=== PATIENT | male | born 1975 | race Caucasian/White ===

== ENCOUNTER 2016-12-09 19:47 | Emergency (ER) | payer SELFPAY ==
[2016-12-09 19:56] VITALS: BP 185/104; PULSE 77; RESP 16; O2SAT 99
--- NOTE | 2016-12-09 20:40 | ED.REPORT ---
HPI- Male Date of Service Dec 09, 2016 ED Provider: Candice Nguyen MD The patient is a 41 year old male with history of HTN who presents to the ED complaining of right testicle pain and swelling. He reports that his pain radiates through his right pelvis and RLQ. He states that he made a sudden movement earlier and felt like he pinched his testicle. Throughout the day, he noticed tenderness and a gradual swelling of his right testicle. He denies dysuria, hematuria, fever, chills, back pain, or any other symptoms at this time. He is sexually active. Nursing Notes Stated Complaint: SWOLLEN TESTICAL Chief Complaint: Male Abdominal Pain Nursing Notes Reviewed: Yes Allergies: Coded Allergies: No Known Allergies (Unverified , 12/09/16) Scheduled Doxycycline Hyclate (Doxycycline Hyclate) 100 Mg Capsule 100 MG PO BID General Time Seen by MD: 20:36 Chief Complaint Testicle painful right, Testicle swollen right Hx Obtained From: Patient Arrived By: Walk-in Onset Occurred: 5 - 8 hours ago Symptom Duration: Since onset Location: : Testicle right Quality: Painful Severity: Current: Moderate Severity: Maximum: Severe Recent Healthcare: No recent doctor visit, No recent hospitalization Similar Sx Previous: No Past Medical History Past Medical History Hypertension Past Surgical History None reported Ambulatory Status Independent Review of Systems Constitutional: Denies: Chills, Fever GI: Denies: Diarrhea, Nausea, Vomiting Male: Reports Scrotal swelling, Reports Testicular pain, Denies Dysuria, Denies Hematuria, Denies Incontinence Musculoskeletal: Denies: Back pain, Extremity pain Complete sys rev & neg: except as marked. Physical Exam Initial Vital Signs Vital Signs (First) Date Time Temp Pulse Resp B/P Pulse Ox O2 Delivery O2 Flow Rate FiO2 12/09/16 19:56 36.8 77 16 185/104 99 Room Air Initial VS: Reviewed General/Constitutional: Well-developed, Well-nourished Head / Eyes: Atraumatic, Normocephalic, PERRL ENT: Mucous membranes moist, Conjunctiva normal, No scleral icterus Neck: Supple, Non-tender, Full range of motion Respiratory: Breath sounds normal, Clear to auscultation, No respiratory distress Cardiovascular: Regular rate & rhythm, Heart sounds normal, Intact distal pulses Abdomen / GI: Soft, Non-tender, No guarding, No rebound, No distention Back: No CVA tenderness Extremities: Vascular intact, Neuro intact, No swelling, No tenderness Skin: Warm, Dry, No cyanosis Neurologic: Alert, Oriented, Nonfocal Psychiatric: Mood/affect normal, Behavior normal, Normal thought content Male Genitourinary: Atraumatic, Inspection NL, Penis NL, No penile discharge, Testes NL, Epididymis NL, No mass, No lesions or rash Interpretation & Diagnostics Lab Results Interpretation Result Diagram: 12/09/16 2100 12/09/16 2100 Test 12/09/16 20:42 12/09/16 21:00 Urine Color Yellow (YELLOW) Urine Appearance Clear (CLEAR,HAZY) Urine pH 7.0 (5.0-8.0) Urine Specific [place] 1.025 (1.003-1.035) Urine Protein Negativemg/dL (NEG,TRACE) Urine Glucose (UA) Negativemg/dL (NEGATIVE) Urine Ketones Negativemg/dL (NEGATIVE) Urine Occult Blood Negative (NEGATIVE) Urine Nitrite Negative (NEGATIVE) Urine Bilirubin Negative (NEGATIVE) Urine Urobilinogen Normalmg/dL (NORMAL) Urine Leukocyte Esterase Negative (NEGATIVE) Urine RBC 0-2/hpf (0-2) Urine WBC 0-5/hpf (0-5) Urine Epithelial Cells None/hpf (NONE-MOD) Urine Crystals None seen (NONE SEEN) Urine Bacteria None/hpf (NONE-FEW) Urine Hyaline Casts None/lpf (NONE) Urine Granular Casts None seen (NONE SEEN) Urine Waxy Casts None seen (NONE SEEN) Urine Red Blood Cell Casts None seen (NONE SEEN) Urine White Blood Cell Casts None seen (NONE SEEN) Urine Mucus Present (None Seen) Urine Trichomonas None seen (NONE SEEN) Urine Yeast None (NONE SEEN) Urinalysis Comment None Urine Culture Reflexed Not indicated White Blood Count 8.6th/mm3 (3.8-10.1) Red Blood Count 4.66mil/mm3 (4.40-5.80) Hemoglobin 14.3g/dL (13.8-17.2) Hematocrit 40.4% (41.0-50.0) Mean Corpuscular Volume 86.7fL (81-100) Mean Corpuscular Hemoglobin 30.7pg (27.0-35.0) Mean Corpuscular Hemoglobin Concent 35.4% (32.0-37.0) Red Cell Distribution Width 12.3% (12.3-15.4) Platelet Count 221bil/L (150-400) Neutrophils (%) (Auto) 48.2% (40-74) Lymphocytes (%) (Auto) 40.8% (14-46) Monocytes (%) (Auto) 9.4% (4-12) Eosinophils (%) (Auto) 1.2% (0-5) Basophils (%) (Auto) 0.2% (0-3) Sodium Level 143mEq/L (134-144) Potassium Level 4.2mEq/L (3.5-5.2) Chloride Level 105mEq/L (97-108) Carbon Dioxide Level 25mmol/L (18-29) Blood Urea Nitrogen 12mg/dL (6-24) Creatinine 0.82mg/dL (0.76-1.27) Estimat Glomerular Filtration Rate 110mL/min (>59) Glucose Level 95mg/dL (60-99) Calcium Level 9.1mg/dL (8.5-10.1) Total Bilirubin 0.3mg/dL (0.0-1.2) Aspartate Amino Transf (AST/SGOT) 25U/L (0-50) Alanine Aminotransferase (ALT/SGPT) 37U/L (0-44) Alkaline Phosphatase 65U/L (25-150) Total Protein 7.2g/dL (6.4-8.4) Albumin 4.5g/dL (3.4-5.0) Hold [place] Top Tube Received (Received) US Renal/Urinary Tract Testicular US: IMPRESSION: Hyperemic right epididymis raising the possibility of epididymitis. Please correlate clinically and with urinalysis. Very small bilateral hydroceles. Incidental bilateral testicular microcalcifications, nonspecific finding. Dictated by: Roni Alfred M.D. on 12/09/2016 at 21:58 Approved by: Roni Alfred M.D. on 12/09/2016 at 22:01 Exam Performed by: [facility] pract Exam Type: Diagnostic Exam Interpreted by: Radiologist Re-Eval/Medical Decision Med Decision/Clinical Course 41-year-old male with no past medical history year with right testicular pain and swelling. Differential diagnosis includes but is not limited to epididymitis versus orchitis versus varicocele versus testicular torsion. Ultrasound shows hyperemia, without any concern for torsion. Patient does not have any evidence of urinary tract infection. I have given him Rocephin and azithromycin in the emergency department, and a prescription for doxycycline to go home with. His pain was relieved with ibuprofen prior to arrival. He is aware and amenable to discharge and has been given very strict return precautions. Source of Hx: Old records Re-Evaluation/Progress : Time of Eval: 21:56 Re-Evaluation/Progress Note: Rechecked the patient. Discussed US and lab result. Discussed diagnosis and plan for discahrge. The patient understands and agrees to the plan. Follow-up instructions and RTER warnings given. All questions addressed. Counseled Regarding: Diagnosis, Lab results, Need for follow-up, When/why to return to ED Discharge & Departure Impression: Primary Impression: Epididymitis, right Disposition: Home Discharge Condition All VS Reviewed: Yes Condition: Stable Patient Instructions: Epididymitis (ED) Additional Instructions: Your emergency room visit today included a consultation, physical examination, lab testing, and ultrasound imaging. Your ultrasound shows that you have Epididymitis, this is a common infection that can be due to a number of different bacteria. As such, I have given you a dose of antibiotics in the ED to treat any sexually transmitted diseases and prescribed you a course of antibiotics to treat other bacterial infection. Please take this as prescribed. Follow-up with your primary care doctor if your symptoms have not started to improve in the next week. Return to the emergency department if you develop any other new/concerning symptoms. Thank you for coming in today, I hope you start to feel better soon. Referrals: [facility] (PCP) Dalila Attestation Portions of this note were transcribed by Ellis Vasques. I, Dr. Nguyen, personally performed the history, physical exam, and medical decision-making; I reviewed and confirmed the accuracy of the information in the transcribed note. Signed by: Dalila Peres, 12/09/16 and 22:02. Candice Nguyen MD Dec 09, 2016 20:40 ELLIS VASQUES Dec 09, 2016 22:03
[2016-12-09 21:06] LABS: APPEARANCE,URINE CLEAR (CLEAR,HAZY); COLOR,URINE YELLOW (YELLOW)
[2016-12-09 21:07] LABS: OCCULT BLOOD,URINE NEGATIVE (NEGATIVE); UROBILINOGEN,URINE NORMAL (NORMAL)
[2016-12-09 21:13] LABS: BASOPHILS % (AUTO) 0.2 % (0-3); EOSINOPHILS % (AUTO) 1.2 % (0-5); MONOCYTES % (AUTO) 9.4 % (4-12); Mean Corpuscular Hemoglobin 30.7 pg (27.0-35.0); Mean Corpuscular Volume 86.7 fL (81-100); NEUTROPHILS % (AUTO) 48.2 % (40-74); Platelet Count 221 bil/L (150-400)
[2016-12-09] MEDS ORDERED: cefTRIAXone Inj 1,000 MG, Lidocaine PF 1% Inj 2.1 ML in Syringe 0 EACH IM ONE (21:50)
--- NOTE | 2016-12-09 22:03 | DRSVH ---
PROCEDURE: US TESTICULAR SONOGRAM WITH DOPPLER INDICATIONS: right testicular pain/swelling TECHNIQUE: Real-time scanning was performed of the scrotum and testicles, with image documentation. Color and p ulse Doppler interrogation was performed of both testicles. COMPARISON: None. FINDINGS: Right: Testicle is normal in size at 4.6 x 2.5 x 3.7 cm, and homogenous in echotexture. Few scatter ed microlithiasis Epididymis demonstrates increased vascularity within the body and tail, which is in the area of the clinically reported pain.. Very small hydrocele. No varicoceles. Overlying scrotal skin is normal in thickness. Left: Testicle is normal in size at 4.5 x 2.2 x 3.2 cm, and homogeneous in echotexture. Few scattere d microcalcifications Incidental 2.6 x 1.1 x 1.8 mm epididymal cyst/spermatocele Very small hydrocele . No varicoceles. Overlying scrotal skin is normal in thickness. Doppler: Color and pulse Doppler demonstrate normal and symmetric arterial flow in both testicles. IMPRESSION: Hyperemic right epididymis raising the possibility of epididymitis. Please correlate clinically and w ith urinalysis. Very small bilateral hydroceles. Incidental bilateral testicular microcalcifications, nonspecific finding. Dictated by: Roni Alfred M.D. on 12/09/2016 at 21:58 Approved by: Roni Alfred M.D. on 12/09/2016 at 22:01
[2016-12-09] MEDS ORDERED: DOXY100C2 PO (22:35)
[2016-12-09 22:39] VITALS: BP 185/104; PULSE 77; RESP 16; O2SAT 99
== END 2016-12-09 22:40 | disposition home or self-care (01) ==
LOC: SED 19:47
DX: N45.1 Epididymitis (principal); I10 Essential (primary) hypertension
CPT/HCPCS: 36415; 76870; 80053; 81000; 85025; 93975; 96372; 99285; J0696